=== PATIENT | female | born 1965 | race Caucasian/White ===

== ENCOUNTER → 2021-03-07 | Outpatient (CLI) | payer MEDICARE | LOC: NM 01-17 08:00 → ECHO 01-17 10:00 → NM 09:00 | DX: I20.9 Angina pectoris, unspecified (principal); I51.7 Cardiomegaly; R94.39 Abnormal result of other cardiovascular function study | CPT/HCPCS: ECHO; 78452; 93017; 93306; A9502; J2785 ==